=== PATIENT | male | born 1950 | race Caucasian/White ===

== ENCOUNTER → 2019-06-27 | Outpatient (CLI) | payer SELFPAY | PROVIDERS: Family Provider Family Medicine; Visit Provider Internal Medicine Medical Oncology | DX: D47.2 Monoclonal gammopathy (principal); K21.9 Gastro-esophageal reflux disease without esophagitis; J44.9 Chronic obstructive pulmonary disease, unspecified; M19.90 Unspecified osteoarthritis, unspecified site | CPT/HCPCS: 99213 ==

== ENCOUNTER 2019-12-26 13:20 | Outpatient (CLI) | payer MEDICARE, BC, SELFPAY ==
--- NOTE | 2019-12-29 18:02 | ONC FU_ITS ---
Dr. Fernandez Patient Follow-Up Note Patient: Edward Wood Unit #: [id number]: 1950 Dicatated By: Eleuterio eFrnandez M.D.Date of Visit:Dec 26, 2019 Onc Med Follow-up/Prog Note Chief Complaint: Monoclonal gammopathy. History of Present Illness: This is a 69 year-old man with IgG kappa monoclonal gammopathy. He has been in good general health. In October 2016 he had presented to Dr. Gregory with acute onset of numbness in his hands and feet. His clinical presentation was consistent with polyneuropathy. His initial evaluation included a low normal range B12 level at 254 pg/mL. His protein electrophoresis showed an IgG kappa monoclonal protein which quantitated at 0.9 g/dL. He had further laboratory evaluation on 11/26/2016. This included CBC showing hemoglobin 16.2 g with white blood cell count 5100 and platelet count 246,000. The red cell indices were normal. Sedimentation rate was normal at 7 mm/hour. Comprehensive metabolic profile was unremarkable. Renal function was normal BUN 18 and creatinine 1.04 mg/dL. Calcium was normal at 9.4 mg/dL. Quantitative immunoglobulin levels showed elevated IgG at 1680 mg/dL with normal IgA at 121 mg/dL and normal IgM at 55 mg/dL. His free light chain assay showed elevated kappa light chain at 38.73 mg/L with normal lambda light chain at 12.62 mg/L and mildly elevated kappa/lambda ratio at 3.07. A 24-hour urine showed no monoclonal protein. Skeletal survey showed no evidence of osteolytic or osteoblastic changes. 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 I had seen him initially on 12/29/2016. At that point his symptoms had improved significantly. In the absence of any clinical evidence of symptomatic myeloma, I had just recommended observation/expectant management. His other medical illnesses have been limited to mild COPD, GERD, and degenerative arthritis. He has history of smoking 1 pack of cigarettes daily for 45 years. He quit smoking in 2006. INTERIM HISTORY: On his repeat laboratory studies from 05/31/2018 his M protein at increased slightly, to 1.1 g/dL, and he continued on observation/expectant management. On his followup in December 2018 it remained stable at 0.94 g/dL. He is seen for a scheduled visit. He complains that he has been tired a lot, but that he attributes to not sleeping well. Otherwise he has been feeling pretty good. His ECOG score is 1. He has good appetite. He has no fever or night sweats. He does complain that he has pain in both legs. It does tend to be positional. Seems to bother him when he is turning in bed. He has some pain in his knee joints. He does not complain of cough. He has some shortness of breath. He occasionally has burning pain across his chest. His acid reflux is generally managed with his medication. He has no other GI complaints. He has a little problem with his prostate, but bladder function remains adequate. He has no other joint or bone pain. He very seldom has headache. He says his feet are little numb at times. He has no other focal neurologic symptoms. Medications: Flomax 1 (0.4 mg) Capsule Oral at bedtime, Lipitor 1 (40 mg) Tablet Oral daily, Omeprazole 1 (20 mg) Tablet, enteric coated Oral daily Allergies: No Known Allergies. Review of Systems: Constitutional - He has been feeling pretty good. His energy is okay but he is constantly fatigued. His appetite is good and weight is down about 6 pounds since last visit. No fever, night sweats, or hot flashes. ECOG score is 1, ENMT - He has seasonal allergies. He has sinus drainage. No mouth sores. No sore throat or difficulty swallowing, Hematologic/Lymphatic - No abnormal bruising or bleeding, Respiratory - He gets short of breath with activity. No cough. No pleuritic pain or hemoptysis, Cardiovascular - He has intermittent anginal pain, he described this as a burning feeling. No palpitations, Gastrointestinal - No nausea or vomiting. He is taking Prilosec for acid reflux, which is working well for him. No diarrhea or constipation. No blood in the stool or black stools, Genitourinary (M) - No dysuria or hematuria. No urinary frequency. No urgency or incontinence. He is taking Flomax for his prostate, Musculoskeletal - He continues to have pain in his lower back and in his hips. He is having his back evaluated today by Dr. Ayala, Integumentary - No skin complications, Neurologic - No headache or dizziness. He has neuropathy in his feet. No other focal neurologic symptoms, Psychiatric - No anxiety or depression. He is not sleepy well due to his hip pain. Vital Signs: Performed on Dec 26, 2019 12:29 Height - 72.00 in Weight - 207 lbs (LOW) BSA - 2.16 sq.m BMI - 28.07 Temperature - 97.6 F (LOW) Pulse - 105 /min (HIGH) Respiration - 18 /min BP - 116/70 mm(hg) O2 Sat - 96 % Pain - 0 Physical Examination: Constitutional - He looks good generally, Eyes - Sclerae nonicteric. Conjunctivae clear, ENMT - No lesions noted in the oral cavity, Hematologic/Lymphatic - No cervical, clavicular, or axillary adenopathy, Respiratory - Lungs are clear with good air movement bilaterally, Cardiovascular - Heart rhythm is regular. There is no murmur, gallop, or rub noted, Abdomen - Soft. Liver and spleen are not enlarged. There is no abdominal mass or ascites noted and there is no inguinal adenopathy, Extremities - No edema. Dorsalis pedis pulses are palpable bilaterally, Neurologic - No focal neurologic deficits noted. Lab/Imaging: Test performed on Dec 26, 2019 11:12 Glucose 104 mg/dL Protein, Total 7.3 g/dL Albumin, SPE 4.18 g/dL BUN 16 mg/dL Creatinine 1.01 mg/dL Cr Clearance (Est) 90.38 mL/min Sodium 138 mmol/L Potassium 4.0 mmol/L Chloride 102 mmol/L CO2 27 mmol/L Calcium 9.3 mg/dL Albumin 4.3 g/dL Bilirubin, Total 0.6 mg/dL Alkaline Phosphatase 92 IU/L AST (SGOT) 20 IU/L ALT (SGPT) 23 IU/L WBC 5.9 10^9/L RBC 5.02 10^12/L HGB 14.9 g/dL HCT 44.4 % MCV 88.4 fl MCH 29.7 pg MCHC 33.6 g/dL RDW 14.0 % Platelet Count 254 10^9/L MPV 9.0 fL Neutrophils (Gran) 2.04 10^9/L Lymphocytes 0.53 10^9/L Monocytes 0.24 10^9/L Eosinophils 0.04 10^9/L Basophils 0.02 10^9/L Manual Lymphocytes 35 % Manual Monocytes 9 % Manual Eosinophils 4 % Manual Basophils 1 % Page / Lambda Ratio 4.49 Absolute Value Lambda Light Chain 11.20 Page Light Chain 50.30 Vgipp-4-lreiwlty 0.20 g/dL Efwri-2-qkzqiyhy 0.75 g/dL Beta Globulin 0.69 g/dL Gamma Globulin 1.47 g/dL SPE Interpretation No significant pavon in monoclonal proteinemia since prior study Impression: 1. Patient with IgG kappa monoclonal gammopathy of undetermined significance. He had initially presented in October 2016 with polyneuropathy. There was no clinical evidence to suggest myeloma. 2. He had possible B12 deficiency. His other medical illnesses include: 3. GERD. 4. Mild COPD. 5. Degenerative arthritis. He has been followed on observation/expectant management. As of May 2018 there was a slight increase in his M protein, to 1.1 g/dL. However, as of December 2018 it was stable of 0.94 g/dL, and on the current study it remained stable at 0.90 g/dL. He does report some pain in his back and both legs, which tends to be positional. Overall, he appears to be doing well clinically. Thus far there has been no evidence of myeloma. Plan: He continues on observation/expectant management. I will now just plan a follow-up visit in one year. Signed By: Eleuterio Fernandez M.D. <<Signature on File>>
== END 2019-12-26 13:21 | disposition home or self-care (01) ==
LOC: ONCMED 13:20
PROVIDERS: PCP Family Medicine; Visit Provider Internal Medicine Medical Oncology
DX: D47.2 Monoclonal gammopathy (principal); M79.605 Pain in left leg; M79.604 Pain in right leg; E53.8 Deficiency of other specified B group vitamins; K21.9 Gastro-esophageal reflux disease without esophagitis; J44.9 Chronic obstructive pulmonary disease, unspecified; M19.90 Unspecified osteoarthritis, unspecified site
CPT/HCPCS: G0463

== ENCOUNTER → 2020-03-04 08:00 | Outpatient (BNVA) | payer MEDICARE, BC, SELFPAY | PROVIDERS: PCP Family Medicine; Visit Provider Urology | DX: R97.20 Elevated prostate specific antigen [PSA] (principal); N13.8 Other obstructive and reflux uropathy; N40.1 Benign prostatic hyperplasia with lower urinary tract symptoms | CPT/HCPCS: 81001; 84153 ==

== ENCOUNTER 2020-12-24 10:30 | Outpatient (CLI) | payer MEDICARE, BC, SELFPAY ==
--- NOTE | 2020-12-27 07:04 | ONC FU_ITS ---
Dr. Fernandez Patient Follow-Up Note Patient: Edward Wood Unit #: [id number]: 1950 Dicatated By: Eleuterio Fernandez M.D.Date of Visit:Dec 24, 2020 Onc Med Follow-up/Prog Note Chief Complaint: Monoclonal gammopathy. History of Present Illness: This is a 70 year-old man with IgG kappa monoclonal gammopathy. He has been in good general health. In October 2016 he had presented to Dr. Gregory with acute onset of numbness in his hands and feet. His clinical presentation was consistent with polyneuropathy. His initial evaluation included a low normal range B12 level at 254 pg/mL. His protein electrophoresis showed an IgG kappa monoclonal protein which quantitated at 0.9 g/dL. He had further laboratory evaluation on 11/26/2016. This included CBC showing hemoglobin 16.2 g with white blood cell count 5100 and platelet count 246,000. The red cell indices were normal. Sedimentation rate was normal at 7 mm/hour. Comprehensive metabolic profile was unremarkable. Renal function was normal BUN 18 and creatinine 1.04 mg/dL. Calcium was normal at 9.4 mg/dL. Quantitative immunoglobulin levels showed elevated IgG at 1680 mg/dL with normal IgA at 121 mg/dL and normal IgM at 55 mg/dL. His free light chain assay showed elevated kappa light chain at 38.73 mg/L with normal lambda light chain at 12.62 mg/L and mildly elevated kappa/lambda ratio at 3.07. A 24-hour urine showed no monoclonal protein. Skeletal survey showed no evidence of osteolytic or osteoblastic changes. 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 I had seen him initially on 12/29/2016. At that point his symptoms had improved significantly. In the absence of any clinical evidence of symptomatic myeloma, I had just recommended observation/expectant management. His other medical illnesses have been limited to mild COPD, GERD, and degenerative arthritis. He has history of smoking 1 pack of cigarettes daily for 45 years. He quit smoking in 2006. INTERIM HISTORY: On his repeat laboratory studies from 05/31/2018 his M protein at increased slightly, to 1.1 g/dL, and he continued on observation/expectant management. During subsequent follow-up the M protein remained stable, quantitating at 0.94 g/dL in December 2018 and 0.90 g/dL in December 2019. He is seen for a scheduled visit. He has been feeling pretty good generally. He says he has been a little more tired. He still has pretty much normal activity, though does take him a little longer to get things done. He has good appetite. His weight is stable. He has no fever or night sweats. He has a little bit of sinus drainage. He says his breathing is pretty good. He does not complain of cough and he has not been having chest pain. He has no GI or complaints. He has joint pain, mainly in his hips and knees. He complains that his right kneecap locks and in certain positions the pain in his knee is pretty bad. He does not complain of headache or dizziness. He says his feet and toes are little numb sometimes. He has no other focal neurologic symptoms. He has had some depression, though recently it has been better. He says he does not sleep well at night. Medications: Flomax 1 (0.4 mg) Capsule Oral at bedtime, Lipitor 1 (40 mg) Tablet Oral daily, Omeprazole 1 (20 mg) Tablet, enteric coated Oral daily Allergies: No Known Allergies. Vital Signs: Performed on Dec 24, 2020 10:27 Height - 72.00 in Weight - 207 lbs BSA - 2.16 sq.m BMI - 28.07 Temperature - 98.6 F Pulse - 92 /min Respiration - 18 /min BP - 108/68 mm(hg) O2 Sat - 97 % Pain - 2 Physical Examination: Constitutional - He looks good generally, Eyes - Sclerae nonicteric. Conjunctivae clear, ENMT - No lesions noted in the oral cavity, Hematologic/Lymphatic - No cervical, clavicular, or axillary adenopathy, Respiratory - Lungs are clear with good air movement bilaterally, Cardiovascular - Heart rhythm is regular. There is no murmur, gallop, or rub noted, Abdomen - Soft. Liver and spleen are not enlarged. There is no abdominal mass or ascites noted and there is no inguinal adenopathy, Extremities - No edema, Neurologic - No focal neurologic deficits noted. Lab/Imaging: Test performed on Dec 18, 2020 07:19 Glucose 110 mg/dL Protein, Total 7.3 g/dL Albumin, SPE 3.9 g/dL BUN 17 mg/dL Creatinine 0.92 mg/dL Cr Clearance (Est) 97.81 mL/min Sodium 138 mmol/L Potassium 3.9 mmol/L Chloride 102 mmol/L CO2 23 mmol/L Calcium 9.2 mg/dL Albumin 4.0 g/dL Globulin 3.3 g/dL Bilirubin, Total 0.6 mg/dL Alkaline Phosphatase 88 IU/L AST (SGOT) 19 IU/L ALT (SGPT) 26 IU/L Sed Rate 2 mm/hr WBC 4.9 10^9/L RBC 5.19 10^12/L HGB 15.2 g/dL HCT 46.8 % MCV 90.2 fl MCH 29.3 pg MCHC 32.5 g/dL RDW 14.3 % Platelet Count 244 10^9/L MPV 10.2 fL Neutrophils (Gran) 2381 10^9/L Lymphocytes 1808 10^9/L Monocytes 461 10^9/L Eosinophils 221 10^9/L Basophils 29 10^9/L Manual Lymphocytes 36.9 % Manual Monocytes 9.4 % Manual Eosinophils 4.5 % Manual Basophils 0.6 % [place] / Lambda Ratio 3.96 Absolute Value Lambda Light Chain 13.5 [place] Light Chain 53.4 Oejoj-0-vjvykluu 0.3 g/dL Ulvgq-3-wcydprep 0.8 g/dL Gamma Globulin 1.6 g/dL SPE Interpretation restricted band (M-spike) migrating in the gamma region Problem List: 1. IgG kappa monoclonal gammopathy of undetermined significance. 2. He had possible B12 deficiency. 3. GERD. 4. Mild COPD. 5. Degenerative arthritis. Problems Addressed with this Encounter and Plan: Patient with IgG kappa monoclonal gammopathy of undetermined significance. He had initially presented in October 2016 with polyneuropathy. There was no clinical evidence to suggest myeloma. He has been followed on observation/expectant management. As of May 2018 there was a slight increase in his M protein, to 1.1 g/dL. However, as of December 2018 it was stable of 0.94 g/dL, and in December 2019 it remained stable at 0.90 g/dL. On the current study, the M protein is up a little, now to 1.3 g/dL. The significance remains uncertain as he appears stable clinically and there has been no significant change in the free kappa light chain or the kappa/lambda ratio. Results of the urine protein electrophoresis are still pending. In the absence of any evidence of urinary monoclonal protein excretion, he will just remain on observation/check expectant management. I will tentatively plan a follow-up visit in 1 year. Signed By: Eleuterio Fernandez M.D. <<Signature on File>>
== END 2020-12-24 10:31 | disposition home or self-care (01) ==
PROVIDERS: PCP Family Medicine; Visit Provider Internal Medicine Medical Oncology
DX: D47.2 Monoclonal gammopathy (principal); D51.9 Vitamin B12 deficiency anemia, unspecified; K21.9 Gastro-esophageal reflux disease without esophagitis; J44.9 Chronic obstructive pulmonary disease, unspecified; M19.90 Unspecified osteoarthritis, unspecified site; Z79.899 Other long term (current) drug therapy
CPT/HCPCS: G0463

== ENCOUNTER 2021-02-25 11:11 | Outpatient (CLI) | payer MEDICARE, BC, SELFPAY ==
--- NOTE | 2021-02-25 11:21 | XRR_ITS ---
PROCEDURE INFORMATION: Exam: XR Right Knee Exam date and time: 02/25/2021 11:21 AM Age: 70 years old Clinical indication: Pain; Right; Patient HX: RT knee scope; Additional info: R knee pain TECHNIQUE: Imaging protocol: XR Right knee. Views: 1 or 2 views. Total images: 2 COMPARISON: MRI Knee w/o RIGHT* [id number] 01/31/2016 4:33 PM FINDINGS: Bones/joints: Minimal marginal osteophytes are noted. No acute fracture nor subluxation. No osseous erosion nor periosteal reaction. Soft tissues: Normal. XR/XR knee RT 1-2V [id number] IMPRESSION: No acute osseous pathology.
== END 2021-02-25 11:12 | disposition home or self-care (01) ==
LOC: RAD 11:17
PROVIDERS: PCP Internal Medicine; Visit Provider Internal Medicine
DX: M25.561 Pain in right knee (principal)
CPT/HCPCS: 73560

== ENCOUNTER → 2021-03-03 08:29 | Outpatient (BNVA) | payer MEDICARE, BC, SELFPAY | PROVIDERS: PCP Internal Medicine; Visit Provider Urology | DX: N40.1 Benign prostatic hyperplasia with lower urinary tract symptoms (principal); N13.8 Other obstructive and reflux uropathy; R97.20 Elevated prostate specific antigen [PSA]; Z12.5 Encounter for screening for malignant neoplasm of prostate; R31.29 Other microscopic hematuria | CPT/HCPCS: 81003; 84153 ==

== ENCOUNTER 2021-04-07 09:20 | Outpatient (CLI) | payer MEDICARE, BC, SELFPAY ==
--- NOTE | 2021-04-07 09:36 | CT_ITS ---
WS: [id number] LDCT LUNG CANCER SCREENING HISTORY: HX OF TOBACCO USE TECHNIQUE: Axial imaging performed from the apices to 1 cm below the costophrenic angles. Coronal and sagittal reformats are submitted with axial MIP series. All CT scans at [facility] use at least one of these dose optimization techniques: automated exposure control; mA and/or kV adjustment per patient size (includes targeted exams where dose is matched to clinical indication); or iterativ e reconstruction. DLP: 56.96 mGy.cm DIvol: 1.58 mGy COMPARISON: None available. Diagnostic quality: Satisfactory Lung Nodules: Mild biapical thickening and scarring. Distal airways thickening and reticulation. No p ulmonary nodule or endobronchial lesions. Lungs: Hyperexpanded lungs from emphysema. Heart: Normal size. No effusion. Other findings: Small hiatal hernia. Low-attenuation masses in the liver are consistent with cysts th at were described on 10/21/2012. CT/CT lung screening [id number] IMPRESSION: LUNG-RADS: 1-Negative FOLLOW UP: 12 Month: Continue annual screening with LDCT OTHER FINDINGS (S MODIFIER): None.
== END 2021-04-07 09:21 | disposition home or self-care (01) ==
LOC: CT 09:24
PROVIDERS: PCP Internal Medicine; Visit Provider Internal Medicine
DX: Z87.891 Personal history of nicotine dependence (principal)
CPT/HCPCS: 71271